=== PATIENT | female | born 2000 | race Caucasian/White ===

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

== ENCOUNTER 2021-03-22 10:21 | Emergency (ER) | payer OTHER ==
[2021-03-22 11:17] LABS: RED BLOOD COUNT 4.44 M/UL (4.00-5.10)
[2021-03-22 11:54] LABS: BUN/CREATININE RATIO 9 (0-10)
== END 2021-03-22 15:05 | disposition home or self-care (01) ==
LOC: ER1 10:21
PROVIDERS: Emergency Medicine
DX: O03.4 Incomplete spontaneous abortion without complication (principal)
CPT/HCPCS: 71045; 72125; 80053; 82550; 82553; 83874; 84484; 84702; 85025; 93005; 99284; J7030

== ENCOUNTER 2021-11-25 15:42 | Outpatient (CLI) | payer OTHER ==
[~2021-11-25] VITALS: Ht 172.7 cm; Wt 97.1 kg
== END 2021-11-25 19:54 | disposition home or self-care (01) ==
LOC: GENOP 15:42
DX: O99.891 Other specified diseases and conditions complicating pregnancy (principal); R10.2 Pelvic and perineal pain; N89.8 Other specified noninflammatory disorders of vagina; M79.605 Pain in left leg; M79.604 Pain in right leg; Z88.0 Allergy status to penicillin; Z88.8 Allergy status to other drugs, medicaments and biological substances; Z3A.22 22 weeks gestation of pregnancy
CPT/HCPCS: 81001; 83518; 96360; J0696

== ENCOUNTER 2022-02-14 10:02 | Outpatient (CLI) | payer OTHER | END 2022-02-14 11:38 | disposition home or self-care (01) | LOC: GENOP 10:02 | DX: O99.891 Other specified diseases and conditions complicating pregnancy (principal); N89.8 Other specified noninflammatory disorders of vagina; R10.9 Unspecified abdominal pain; M54.9 Dorsalgia, unspecified; O13.3 Gestational [pregnancy-induced] hypertension without significant proteinuria, third trimester; Z3A.34 34 weeks gestation of pregnancy | CPT/HCPCS: 81001; 84112; G0463 ==

== ENCOUNTER 2022-02-17 01:20 | Outpatient (CLI) | payer OTHER | END 2022-02-17 03:04 | disposition home or self-care (01) | LOC: GENOP 01:20 | DX: O47.02 False labor before 37 completed weeks of gestation, second trimester (principal); Z3A.22 22 weeks gestation of pregnancy | CPT/HCPCS: 81001; 82731; G0463 ==

== ENCOUNTER 2022-03-08 23:35 | Outpatient (CLI) | payer OTHER | END 2022-03-09 01:10 | disposition home or self-care (01) | LOC: GENOP 23:35 | DX: O36.8130 Decreased fetal movements, third trimester, not applicable or unspecified (principal); Z3A.37 37 weeks gestation of pregnancy | CPT/HCPCS: 59025; 81001 ==

== ENCOUNTER → 2022-03-13 | Outpatient (CLI) | payer OTHER ==
[~2022-03-13] MED LIST changes: +COLACE100 MG PO; +FAMOTIDINE20 MG PO; +FERROUS SULFAT325 MG PO; +FLINTSTONES1 EAC1 PO; +IBUPROFEN600 MG PO; +PERCOCET 5-3251 EACH PO; +PROCARDIA XL30 MG PO; +TRANDATE 300 M300 MG PO
[2022-03-13 14:11] LABS: HEMOGLOBIN 10.6 gm/dl (12.3-15.3); RED BLOOD COUNT 4.23 M/UL (4.00-5.10); WHITE BLOOD COUNT 6.4 K/UL (4.5-11.0)
== END ==
LOC: GENOP 12:30
PROVIDERS: Obstetrics & Gynecology
DX: Z01.810 Encounter for preprocedural cardiovascular examination (principal); O99.350 Diseases of the nervous system complicating pregnancy, unspecified trimester; G40.909 Epilepsy, unspecified, not intractable, without status epilepticus
CPT/HCPCS: 81001; 85025

== ENCOUNTER 2022-03-14 05:05 | Inpatient (IN) | payer OTHER ==
[~2022-03-14] VITALS: Ht 172.7 cm; Wt 113.4 kg
[~2022-03-14 05:05] MED LIST changes: -COLACE100 MG PO; -FAMOTIDINE20 MG PO; -FERROUS SULFAT325 MG PO; -FLINTSTONES1 EAC1 PO; -IBUPROFEN600 MG PO; -PERCOCET 5-3251 EACH PO; -PROCARDIA XL30 MG PO; -TRANDATE 300 M300 MG PO
[2022-03-14] MEDS ORDERED: FAMOTIDINE20 MG PO (06:21)
[2022-03-14] MEDS ORDERED: FLINTSTONES1 EAC1 PO (06:22)
[2022-03-14] MEDS ORDERED: IBUPROFEN600 MG PO (08:30)
[2022-03-14] MEDS ORDERED: COLACE100 MG PO (08:30)
[2022-03-14] MEDS ORDERED: PERCOCET 5-3251 EACH PO (08:30)
[2022-03-14] MEDS ORDERED: FERROUS SULFAT325 MG PO (08:30)
[2022-03-14 13:03] LABS: HEMOGLOBIN 10.9 gm/dl (12.3-15.3); RED BLOOD COUNT 4.38 M/UL (4.00-5.10); WHITE BLOOD COUNT 13.1 K/UL (4.5-11.0)
[2022-03-14 13:27] LABS: BUN/CREATININE RATIO 8 (0-10)
[2022-03-15 07:14] LABS: HEMOGLOBIN 9.4 gm/dl (12.3-15.3)
[2022-03-16] MEDS ORDERED: TRANDATE 300 M300 MG PO (16:25)
[2022-03-16] MEDS ORDERED: PROCARDIA XL30 MG PO (16:25)
== END 2022-03-16 19:37 | disposition home or self-care (01) | DRG 787 ==
LOC: OB 05:05
PROVIDERS: ADMIT Obstetrics & Gynecology
PROC: 3E0234Z Introduction of Serum, Toxoid and Vaccine into Muscle, Percutaneous Approach (ICD-10-PCS; 2022-03-14)
PROC: 10D00Z1 Extraction of Products of Conception, Low, Open Approach (ICD-10-PCS; principal; 2022-03-14 07:30)
DX: O13.4 Gestational [pregnancy-induced] hypertension without significant proteinuria, complicating childbirth (principal); O99.354 Diseases of the nervous system complicating childbirth; G40.909 Epilepsy, unspecified, not intractable, without status epilepticus; Z3A.38 38 weeks gestation of pregnancy; O99.52 Diseases of the respiratory system complicating childbirth; J45.909 Unspecified asthma, uncomplicated; O99.344 Other mental disorders complicating childbirth; F41.9 Anxiety disorder, unspecified; Z37.0 Single live birth; Z88.0 Allergy status to penicillin; Z28.310 Unvaccinated for COVID-19; Z23 Encounter for immunization
CPT/HCPCS: 36415; 80053; 83615; 83735; 84550; 85014; 85018; 85025; 90471; C9113; J0610; J1170; J1580; J1940; J2550; J2590; J2704; J3475

== ENCOUNTER 2022-03-19 21:09 | Emergency (ER) | payer OTHER ==
[~2022-03-19 21:09] MED LIST changes: +COLACE100 MG PO; +FAMOTIDINE20 MG PO; +FERROUS SULFAT325 MG PO; +FLINTSTONES1 EAC1 PO; +IBUPROFEN600 MG PO; +PERCOCET 5-3251 EACH PO; +PROCARDIA XL30 MG PO; +TRANDATE 300 M300 MG PO
[2022-03-19 22:00] LABS: HEMOGLOBIN 10.4 gm/dl (12.3-15.3); RED BLOOD COUNT 4.15 M/UL (4.00-5.10); WHITE BLOOD COUNT 7.4 K/UL (4.5-11.0)
[2022-03-19 22:26] LABS: BUN/CREATININE RATIO 14 (0-10)
== END 2022-03-20 02:54 | disposition home or self-care (01) ==
LOC: ER1 21:09
PROVIDERS: Physician Assistant
DX: O16.5 Unspecified maternal hypertension, complicating the puerperium (principal); Z88.0 Allergy status to penicillin; Z88.8 Allergy status to other drugs, medicaments and biological substances
CPT/HCPCS: 80053; 81001; 82009; 83735; 83880; 85025; 87086; 99283